=== PATIENT | female | born 1960 ===

== ENCOUNTER 2018-01-27 09:26 | Emergency (ER) | payer SELFPAY ==
[~2018-01-27] VITALS: Ht 167.6 cm; Wt 75.0 kg
[2018-01-27] MEDS ORDERED: BACTRIM DS1 TAB PO (09:59)
[2018-01-27] MEDS ORDERED: MOTRIN400 MG PO (09:59)
[2018-01-27] MEDS ORDERED: CEPHALEXIN500 M1 PO (09:59)
[2018-01-27 11:27] VITALS: BP 155/81
== END 2018-01-27 11:27 | disposition home or self-care (01) | DRG 603 ==
LOC: ED 09:26
DX: L03.313 Cellulitis of chest wall (principal); L76.82 Other postprocedural complications of skin and subcutaneous tissue; R51 Headache; M54.5 Low back pain; Y83.9 Surgical procedure, unspecified as the cause of abnormal reaction of the patient, or of later complication, without mention of misadventure at the time of the procedure